=== PATIENT | female | born 1985 | race Caucasian/White ===

== ENCOUNTER 2016-07-29 23:05 | Emergency (ER) | payer SELFPAY ==
[~2016-07-29] VITALS: Ht 149.9 cm; Wt 90.7 kg
[2016-07-29 23:17] VITALS: BP 152/103; PULSE 102; RESP 18; TEMP 97.7; O2SAT 93
== END 2016-07-29 23:55 | disposition left against medical advice (07) ==
LOC: SED 23:05
DX: M79.622 Pain in left upper arm (principal); H57.11 Ocular pain, right eye; Z53.21 Procedure and treatment not carried out due to patient leaving prior to being seen by health care provider; Y04.8XXA Assault by other bodily force, initial encounter; Y93.89 Activity, other specified; Y99.8 Other external cause status; Y92.89 Other specified places as the place of occurrence of the external cause